=== PATIENT | male | born 1990 | race African-American/Black ===

== ENCOUNTER 2017-10-24 14:59 | Emergency (ER) | payer OTHER ==
[2017-10-24 15:10] VITALS: BP 130/77; PULSE 58; RESP 16; TEMP 98.7; O2SAT 98
--- NOTE | 2017-10-24 15:17 | PD ---
HPI Chief Complaint: Fall Time Seen by Provider: 15:15 Travel History International Travel<30 days: No Contact w/Intl Traveler<30days: No History of Present Illness HPI Patient is a 27-year-old male presents emergency department for evaluation of altered mental status. According to EMS the patient was at his sentencing hearing today when he was issued a life sentence, he was sitting on a wooden bench and had a fall from the bed, per EMS he was acting altered and would not respond appropriately to any questioning, he had completely inappropriate responses. He was not able to move his hands or his legs but was breathing spontaneously. Patient on arrival states his entire left side of his face feels numb but the right side feels fine. He intermittently answers questions appropriately and then sometimes answers completely inappropriate answers for both myself and the staff. He is protecting his airway. PFSH Past Medical History Cancer: No Diabetes: No Diminished Hearing: No Psychiatric: Yes Immunizations Current: Yes Seizures: No Thyroid Disease: No Ulcer: No Past Surgical History Other Surgery: No Social History Alcohol Use: No Tobacco Use: Yes (1/2PPD) Substance Use: Yes Allergies-Medications (Allergen,Severity, Reaction): Coded Allergies: ziprasidone (Unverified Allergy, Severe, Seizures, 04/17/17) Reported Meds & Prescriptions Reported Meds & Active Scripts Active No Active Prescriptions or Reported Medications Review of Systems ROS Limitations: Refused Physical Exam Exam Limitations: Uncooperative Narrative GENERAL: Well-developed well-nourished, appears comfortable, in full spinal package. SKIN: Focused skin assessment warm/dry. HEAD: Atraumatic. Normocephalic. No hicks signs no raccoons eyes. EYES: Pupils equal and round. No scleral icterus. No injection or drainage. ENT: No nasal bleeding or discharge. Mucous membranes pink and moist. NECK: Trachea midline. No JVD. CARDIOVASCULAR: Regular rate and rhythm. No murmur appreciated. RESPIRATORY: No accessory muscle use. Clear to auscultation. Breath sounds equal bilaterally. GASTROINTESTINAL: Abdomen soft, non-tender, nondistended. Hepatic and splenic margins not palpable. MUSCULOSKELETAL: No obvious deformities. No clubbing. No cyanosis. No edema. NEUROLOGICAL: Awake and alert. Patient will not follow commands in any extremities, DTRs are 2+ bilateral equal in all 4 extremities, will not respond to sensation examination. Will not attempt to follow cranial nerve exams for PSYCHIATRIC: Unable to assess. Data Data Last Documented VS Vital Signs Date Time Temp Pulse Resp B/P (MAP) Pulse Ox O2 Delivery O2 Flow Rate FiO2 10/24/17 15:10 98.7 58 16 130/77 (94) [address] Brain W/O Iv Contrast(Rout) (10/24/17 ) Ct Cerv Spine W/O Contrast (10/24/17 ) MDM Medical Decision Making Medical Screen Exam Complete: Yes Emergency Medical Condition: Yes Differential Diagnosis Malingering, head injury, neck injury, Narrative Course 27-year-old male presents emergency department for nonspecific findings and symptoms. CT head and C-spine have been ordered given his possible altered mental status. Given that his symptoms started just after hearing the distressing news that he had been issued a life sentence by the court, I think is a strong possibility that this patient has secondary gains. Patient was discussed with Dr. Tomlinson to reassess the patient after he has had a CT continue workup as he deems necessary and disposition the patient appropriately. Scripts No Active Prescriptions or Reported Meds Lonny Wahl MD Oct 24, 2017 15:17
[2017-10-24 15:40] VITALS: BP 125/72; PULSE 61; RESP 16; O2SAT 99
--- NOTE | 2017-10-24 17:20 | RADRPT ---
EXAM DATE/TIME: 10/24/2017 16:59 [facility] COMPARISON: No previous studies available for comparison. INDICATIONS : Head pain due to fall. RADIATION DOSE: 44.86 CTDIvol (mGy) MEDICAL HISTORY : None SURGICAL HISTORY : None. ENCOUNTER: Initial ACUITY: 1 day PAIN SCALE: 4/10 LOCATION: Bilateral cranial TECHNIQUE: Multiple contiguous axial images were obtained of the head. Using automated exposure control and adj ustment of the mA and/or kV according to patient size, radiation dose was kept as low as reasonably a chievable to obtain optimal diagnostic quality images. DICOM format image data is available electro nically for review and comparison. FINDINGS: CEREBRUM: The ventricles are normal for age. No evidence of midline shift, mass lesion, hemorrhage or acute in farction. No extra-axial fluid collections are seen. POSTERIOR FOSSA: The cerebellum and brainstem are intact. The 4th ventricle is midline. The cerebellopontine angle i s unremarkable. EXTRACRANIAL: The visualized portion of the orbits is intact. SKULL: The calvaria is intact. No evidence of skull fracture. CONCLUSION: Normal examination. Joon Kidd MD on October 24, 2017 at 17:16 Board Certified Radiologist. This report was verified electronically.
--- NOTE | 2017-10-24 17:23 | RADRPT ---
EXAM DATE/TIME: 10/24/2017 16:59 [facility] COMPARISON: No previous studies available for comparison. INDICATIONS : Neck pain due to fall. RADIATION DOSE: 42.17 CTDIvol (mGy) MEDICAL HISTORY : None SURGICAL HISTORY : None. ENCOUNTER: Initial ACUITY: 1 day PAIN SCALE: 4/10 LOCATION: Bilateral neck region. TECHNIQUE: Volumetric scanning of the cervical spine was performed. Multiplanar reconstructions in the sagittal, coronal and oblique axial planes were performed. Using automated exposure control and adjustment o f the mA and/or kV according to patient size, radiation dose was kept as low as reasonably achievable to obtain optimal diagnostic quality images. DICOM format image data is available electronically f or review and comparison. FINDINGS: The alignment is normal. There is no evidence of cervical spine fracture. No bony canal or foraminal stenosis is identified. There is no evidence of paraspinal hematoma. CONCLUSION: No acute bony injury in the cervical spine. Joon Kidd MD on October 24, 2017 at 17:20 Board Certified Radiologist. This report was verified electronically.
--- NOTE | 2017-10-24 17:32 | PD ---
Data Data Last Documented VS Vital Signs Date Time Temp Pulse Resp B/P (MAP) Pulse Ox O2 Delivery O2 Flow Rate FiO2 10/24/17 15:10 98.7 58 16 130/77 (94) [address] Brain W/O Iv Contrast(Rout) (10/24/17 ) Ct Cerv Spine W/O Contrast (10/24/17 ) MDM Supervised Visit with ASHLEE: No Narrative Course The patient was initially evaluated by the previous provider and signed out to me at the beginning of my shift pending CT head, neck, and if normal can be discharged to long term. See his note for further details. Briefly this a 27-year-old male who was seen in court today, brought in by PD in handcuffs for evaluation after an unwitnessed fall. Apparently the patient was not answering questions appropriately upon initial arrival, and a CT head and neck were performed to rule out trauma. On physical exam there are no signs of trauma. On my exam he is awake and alert and in no apparent distress. Vital signs are within normal limits. CT head: Normal exam. CT cervical spine: No acute bony injury of the cervical spine. Patient was made aware of all findings. He is stable for discharge to long term. Diagnosis Primary Impression: Closed head injury Qualified Codes: S09.90XA - Unspecified injury of head, initial encounter Scripts No Active Prescriptions or Reported Meds Disposition: [address] LAW ENFORCEMNT Condition: Stable Barrie Tomlinson MD Oct 24, 2017 17:32
== END 2017-10-24 17:59 ==
LOC: NEPD 14:59
DX: S09.90XA Unspecified injury of head, initial encounter (principal); W08.XXXA Fall from other furniture, initial encounter; F17.200 Nicotine dependence, unspecified, uncomplicated
CPT/HCPCS: 70450; 72125; 99283